=== PATIENT | male | born 2000 | race Caucasian/White ===

== ENCOUNTER 2018-10-09 16:11 | Outpatient (CLI) | payer MEDICAID | END 2018-10-09 16:12 | disposition short-term general hospital (02) | LOC: EMS 16:11 | PROVIDERS: ATTEND Surgery | DX: S61.511A Laceration without foreign body of right wrist, initial encounter (principal); W29.3XXA Contact with powered garden and outdoor hand tools and machinery, initial encounter; Y93.89 Activity, other specified; Y92.69 Other specified industrial and construction area as the place of occurrence of the external cause; Y99.0 Civilian activity done for income or pay | CPT/HCPCS: A0425; A0427; A0999 ==

== ENCOUNTER 2022-08-05 11:48 | Emergency (ER) | payer OTHER ==
[2022-08-05 12:38] LABS: BILIRUBIN,URINE NEGATIVE (NEGATIVE); GLUCOSE, URINE (UA) NEGATIVE (NEGATIVE); KETONES,URINE (UA) NEGATIVE (NEGATIVE); LEUKOCYTE ESTERASE, URINE NEGATIVE (NEGATIVE); NITRITE,URINE NEGATIVE (NEGATIVE); OCCULT BLOOD,URINE NEGATIVE (NEGATIVE); PROTEIN,URINE NEGATIVE (NEGATIVE); UROBILINOGEN,URINE 0.2 (NORMAL) E.U./dL (NORMAL)
[2022-08-05 12:40] LABS: CLARITY,URINE CLEAR (CLEAR)
--- NOTE | 2022-08-05 14:28 | ED Physician Documentation ---
PD HPI MALE - Stated complaint Stated Complaint: GROIN PX - Chief complaint Chief Complaint: Ext Problem - History obtained from History obtained from: Patient - History of Present Illness Timing - onset: How many hours ago (1-2), Today Timing - duration: Hours (1-2) Timing - details: Abrupt onset, Still present Associated symptoms: Other (left inguinal/abdominal pain. 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 He felt a sudden pop/tear feeling in left lower abd/inguinal area. pain with internal rotation of hip and adduction of thigh, and with walking. No scrotal pain.) Similar symptoms before: Has not had sx before Review of Systems Skin: denies: Rash, Lesions, Abrasion (s), Laceration (s) Musculoskeletal: denies: Back pain Neurologic: denies: Focal weakness, Numbness PD PAST MEDICAL HISTORY - Past Medical History Cardiovascular: None Respiratory: None Musculoskeletal: None - Allergies Allergies/Adverse Reactions: Allergies Allergy/AdvReac Type Severity Reaction Status Date / Time No Known Drug Allergies Allergy Verified 08/05/22 12:06 PD ED PE NORMAL - Vitals Vital signs reviewed: Yes - General General: Alert and oriented X 3, Well developed/nourished - Abdomen Abdomen: Normal bowel sounds, Soft, Non tender, Non distended, No organomegaly, Other (it does not really hurt to palpate abdomen. he has pain left lower abd/inguinal area with leg movement, mainly with adduction of leg, and internal rotation at hip. sharp pain upward. No hernia felt. Scrotum and testicle without pain/tenderness. ) Results - Vitals Vitals: Vital Signs - 24 hr 08/05/22 08/05/22 12:03 15:56 Temperature 37.2 C 36.5 C Heart Rate 59 L 67 Respiratory 14 17 Rate Blood Pressure 136/66 H 135/78 H O2 Saturation 100 100 Oxygen O2 Source Room air - Labs Labs: Laboratory Tests 08/05/22 12:16 Urine Color YELLOW Urine Clarity CLEAR Urine pH 6.0 Ur Specific [place] 1.010 Urine Protein NEGATIVE Urine Glucose (UA) NEGATIVE Urine Ketones NEGATIVE Urine Occult Blood NEGATIVE Urine Nitrite NEGATIVE Urine Bilirubin NEGATIVE Urine Urobilinogen 0.2 (NORMAL) Ur Leukocyte Esterase NEGATIVE Ur Microscopic Review NOT INDICATED Urine Culture Comments NOT INDICATED - Rads (name of study) left hip xray Relevant Findings:: Prelim report reviewed, EMP independent interpretation of test (no fracture), See rad report PD Medical Decision Making - ED course Complexity details: reviewed results, considered differential, d/w patient ED course: seems like muscle strain. Can get xray to ensure not stress fracture or bony abnormality. Otherwise it does seem like muscle strain of likely gracilis or adductor brevis, given the provoking motions for the pain. No hernia felt. Can treat with nSaiDs and tylenol. He declines opioids. Crutches for partial weight bearing support (as opposed to lifting leg/nonweight bearing, which would probably provoke the pain more to hold leg up). Departure - Departure Disposition: 01 Home, Self Care Clinical Impression: Injury of muscle of pelvis Condition: Stable Record reviewed to determine appropriate education?: Yes Instructions: ED Sprain Hip Follow-Up: Orthopedic Care [Provider Group] Comments: Your x-ray is normal without any obvious bony abnormality. It does sound likely that you have a strain of the muscles within the pelvis/hip. It seems most likely one of the abductor muscles such as the adductor brevis or gracilis. Typically will treat these with less use and range of motion and commonly will get better over several days to a week. Sometimes it can take 2 or 3 weeks. No bending squatting twisting or prolonged walking/standing on that leg/hip for the next several days to week. You can use partial weightbearing with crutches if it is uncomfortable for full weightbearing. I would suggest regular anti-inflammatory such as ibuprofen or naproxen 2 to 3 tablets with food 2-3 times daily over the next week. To that add Tylenol every 4-6 hours if needed for pain. Follow-up with orthopedics if not improving readily over the next week for further evaluation or potential other treatments. The majority of time this will get better. Forms: Activity restrictions Discharge Date/Time: 08/05/22 16:24
[2022-08-05] MEDS ORDERED: IBUPROFEN 600 MG TABLET PO STA (15:04)
[2022-08-05] MEDS ORDERED: ACETAMINOPHEN 325 MG TABLET PO STA (15:04)
[2022-08-05 15:57] VITALS: BP 135/78
--- NOTE | 2022-08-06 07:07 | XRAY Report ---
PROCEDURE: Hip w/Pelvis 2-3V LT INDICATIONS: hip pain with twisting/pull TECHNIQUE: AP pelvis with lateral view(s) of the left hip(s). COMPARISON: None. FINDINGS: Bones: No fractures or dislocations. Pelvic ring appears intact. No suspicious bony lesions. Soft tissues: The visualized bowel gas pattern is normal. No suspicious soft tissue calcifications. IMPRESSION: No evidence acute bony abnormality of the pelvis and left hip. If clinical suspicion and/or symptoms persist, further assessment with repeat plain films or advanced imaging (e.g., CT, MRI, or bone scan) may be helpful for further assessment. Reviewed by: Jagdish Gu MD on 08/05/2022 3:38 PM PDT Approved by: Jagdish Gu MD on 08/05/2022 3:38 PM PDT Station ID: [id number]
== END 2022-08-05 16:24 | disposition home or self-care (01) ==
LOC: ED 11:48
DX: S39.013A Strain of muscle, fascia and tendon of pelvis, initial encounter (principal); X58.XXXA Exposure to other specified factors, initial encounter; Y93.H2 Activity, gardening and landscaping; Y99.0 Civilian activity done for income or pay
CPT/HCPCS: 1040M; 73502; 81003; 99283; 99284; A9270; 81001; 87086